=== PATIENT | female | born 1980 | race Caucasian/White ===

== ENCOUNTER 2021-07-13 13:59 | Emergency (ER) | payer OTHER ==
[2021-07-13 14:06] VITALS: PULSE 72; TEMP 98.4; BMI 26.6
[2021-07-13 15:04] LABS: BASO % 1.2 % (0-2.0); EOS % 0.6 % (0-4.5); HEMATOCRIT 42.1 % (32.4-45.2); HEMOGLOBIN 14.6 GM/dl (10.7-15.3); LYMPH % 26.5 % (8-40); MCH 30.6 pg (25.7-33.7); MCHC 34.5 g/dl (32.0-36.0); MEAN CELL VOLUME 88.6 fl (80-96); MEAN PLT VOLUME 7.7 fl (7.5-11.1); NEUT % 63.7 % (42.8-82.8); PLATELET COUNT 251 10^3/uL (134-434); RBC 4.76 M/mm3 (3.60-5.2); RDW 12.2 % (11.6-15.6); WHITE BLOOD COUNT 8.4 K/mm3 (4.0-10.8)
[2021-07-13] MEDS ORDERED: LIDOCAINE HCL 2% JELLY (30 ML/TUBE) TP ONE (15:12)
[2021-07-13] MEDS ORDERED: LIDOCAINE VISCOUS 2% ORAL/TOP 15 ML UNIT-DOSE CUP ONE (15:12)
[2021-07-13] MEDS ORDERED: ACETAMINOPHEN 500 MG TABLET (FP) PO ONE (15:12)
[2021-07-13] MEDS ORDERED: ACETAMINOPHEN 500 MG TABLET (FP) ONE (15:12)
[2021-07-13 15:14] LABS: ALBUMIN 4.1 g/dl (3.4-5.0); BILIRUBIN,TOTAL 0.3 mg/dl (0.2-1); CALCIUM 9.3 mg/dl (8.5-10); CREATININE 0.7 mg/dl (0.55-1.3); MAGNESIUM 1.9 mg/dL (1.8-2.4); TOT PROT 6.8 g/dl (6.4-8.2)
[2021-07-13] MEDS ORDERED: LIDOCAINE HCL 2% JELLY (5 ML/TUBE) ONE (15:25)
[2021-07-13 15:34] LABS: HCG,QUALITATIVE URINE Negative
[2021-07-13 17:16] VITALS: BP 142/89
== END 2021-07-13 17:15 | disposition home or self-care (01) ==
LOC: FER 13:59
DX: R00.2 Palpitations (principal); K64.8 Other hemorrhoids; F41.9 Anxiety disorder, unspecified
CPT/HCPCS: 36415; 71046-TC-FY; 80053; 81003; 83735; 84484; 84703; 85025; 93005; 99285-25

== ENCOUNTER 2022-10-09 19:16 | Emergency (ER) | payer OTHER ==
[2022-10-09 19:33] VITALS: BP 153/99; PULSE 78; RESP 18; TEMP 98.9; BMI 28.3
[2022-10-09] MEDS ORDERED: KETOROLAC TROMETHAMINE 30 MG/1 ML VIAL IVPUSH ONE (19:39)
[2022-10-09] MEDS ORDERED: KETOROLAC TROMETHAMINE 30 MG/1 ML VIAL ONE (19:41)
[2022-10-09] MEDS ORDERED: ONDANSETRON 4 MG/2 ML VIAL IVPB ONE (19:42)
[2022-10-09] MEDS ORDERED: SODIUM CHLORIDE 1,000 ML IV ONE (19:42)
[2022-10-09 20:06] LABS: HEMOGLOBIN 14.5 G/dL (10.7-15.3); MCH 30.5 pg (25.7-33.7); MCHC 34.4 g/dl (32.0-36.0); MEAN CELL VOLUME 88.7 fl (80-96); MEAN PLT VOLUME 7.4 fl (7.5-11.1); PLATELET COUNT 245.6 10^3/uL (134-434); RBC 4.74 10^6/uL (3.60-5.2); RDW 13.6 % (11.6-15.6); WHITE BLOOD COUNT 15.6 10^3/uL (4.0-10.8)
[2022-10-09 20:13] LABS: HCG,QUALITATIVE URINE Negative
[2022-10-09 20:23] LABS: BILIRUBIN,TOTAL 0.6 mg/dl (0.2-1); CREATININE 0.7 mg/dl (0.55-1.3); TOT PROT 6.6 g/dl (6.4-8.2)
[2022-10-09] MEDS ORDERED: ONDANSETRON 4 MG/2 ML VIAL ONE (20:31)
[2022-10-09 20:39] LABS: EPITHELIAL CELLS FEW /hpf
== END 2022-10-10 00:59 | disposition home or self-care (01) ==
LOC: FER 19:16
PROC: 3E0333Z Introduction of Anti-inflammatory into Peripheral Vein, Percutaneous Approach (ICD-10-PCS; principal; 2022-10-09)
PROC: 3E033GC Introduction of Other Therapeutic Substance into Peripheral Vein, Percutaneous Approach (ICD-10-PCS; 2022-10-09)
PROC: 3E0337Z Introduction of Electrolytic and Water Balance Substance into Peripheral Vein, Percutaneous Approach (ICD-10-PCS; 2022-10-09)
DX: R10.84 Generalized abdominal pain (principal)
CPT/HCPCS: 36415; 74019-TC-FY; 74177-TC; 80053; 81003; 81015; 84703; 85027; 96361; 96374; 96375; 99285-25; Q9967

== ENCOUNTER 2023-10-23 17:44 | Emergency (ER) | payer OTHER ==
[2023-10-23 18:02] VITALS: BP 139/96; PULSE 87; RESP 18; TEMP 97.9; BMI 29.2
[2023-10-23] MEDS ORDERED: SODIUM CHLORIDE 1,000 ML IV ONE (18:08)
[2023-10-23] MEDS ORDERED: ACETAMINOPHEN 1000 MG/100 ML BAG IVPB ONE (18:08)
[2023-10-23] MEDS ORDERED: ACETAMINOPHEN INJECTION 100 ML IVPB ONE (18:19)
[2023-10-23 18:31] LABS: HCG,QUALITATIVE URINE Negative
[2023-10-23 18:47] LABS: ALBUMIN 4.3 g/dl (3.4-5.0); CALCIUM 9.5 mg/dl (8.5-10.1); CREATININE 0.7 mg/dl (0.6-1.3); POTASSIUM 4.4 mmol/L (3.5-5.1); TOT PROT 6.6 g/dl (6.4-8.2)
[2023-10-23 19:01] LABS: HEMATOCRIT 38.9 % (32.4-45.2); MCH 29.8 pg (25.7-33.7); MCHC 33.3 g/dl (32.0-36.0); MEAN CELL VOLUME 89.6 fl (80-96); MEAN PLT VOLUME 7.7 fl (7.5-11.1); PLATELET COUNT 223.9 10^3/uL (134-434); RBC 4.34 10^6/uL (3.60-5.2); RDW 13.9 % (11.6-15.6)
[2023-10-23 19:34] LABS: PLATELET ESTIMATE ADEQUATE
== END 2023-10-23 21:17 | disposition home or self-care (01) ==
LOC: FER 17:44
PROC: 3E033NZ Introduction of Analgesics, Hypnotics, Sedatives into Peripheral Vein, Percutaneous Approach (ICD-10-PCS; principal; 2023-10-23)
PROC: 3E0337Z Introduction of Electrolytic and Water Balance Substance into Peripheral Vein, Percutaneous Approach (ICD-10-PCS; 2023-10-23)
DX: R10.31 Right lower quadrant pain (principal); Z20.822 Contact with and (suspected) exposure to COVID-19
CPT/HCPCS: 0241U-QW; 36415; 74177-TC; 80053; 81003; 83690; 84703; 85027; 99285-25; Q9967

== ENCOUNTER 2025-07-12 18:27 | Emergency (ER) | payer OTHER ==
[2025-07-12 18:55] VITALS: BP 119/78; PULSE 73; RESP 16; TEMP 98.2; BMI 29.2
== END 2025-07-12 19:05 | disposition home or self-care (01) ==
LOC: FER 18:27
DX: R19.7 Diarrhea, unspecified (principal)
CPT/HCPCS: 99283-25